=== PATIENT | female | born 1955 | race Caucasian/White ===

== ENCOUNTER 2023-07-31 12:48 | Outpatient (REF) | payer MEDICARE, SELFPAY | END 2023-07-31 12:49 | disposition home or self-care (01) | LOC: LBN 12:48 | PROVIDERS: Visit Provider Physician Assistant | DX: N39.0 Urinary tract infection, site not specified (principal) | CPT/HCPCS: 87086 ==

== ENCOUNTER 2023-08-04 19:48 | Outpatient (CLI) | payer MEDICARE, SELFPAY ==
[2023-08-04 10:26] LABS: Abs Immature Grans 0.03 10^3/uL (0.0-0.06); Absolute Basophil Count 0.08 10^3/uL (0.0-0.2); Absolute Eosinophil Count 0.13 10^3/uL (0.0-0.7); Absolute Lymphocyte Count 2.58 10^3/uL (1.2-3.4); Absolute Monocyte Count 0.73 10^3/uL (0.1-0.8); Absolute Neutrophil Count 4.01 10^3/uL (1.2-6.7); Basophils % 1.1 %; Eosinophils % 1.7 %; HCT 38.5 % (36.0-46.0); HGB 12.8 g/dL (11.2-15.7); Immature Grans % 0.4 %; Lymphocytes % 34.1 %; MCH 31.1 pg (27.0-33.0); MCHC 33.2 % (32.0-36.0); MCV 93 fL (80-95); MPV 9.2 fL (8.0-11.0); Monocytes % 9.7 %; Platelet Count 349 10^3/uL (130-400); RBC 4.12 10^6/uL (3.93-5.22); RDW-SD 41.7 fL; WBC 7.56 10^3/uL (4.4-10.8)
[2023-08-04 10:52] LABS: ALT 69 U/L (14-59); AST 44 U/L (15-37); Albumin 3.8 g/dL (3.4-5.0); Alkaline Phosphatase 102 U/L (46-116); Anion Gap 10.7 mmol/L (3-11); BUN 12 mg/dL (7-18); Bilirubin, Total 0.41 mg/dL (0.2-1.0); CO2 27.3 mmol/L (21.0-32.0); CREATININE 1.1 mg/dL (0.55-1.02); Calcium 9.6 mg/dL (8.5-10.1); Chloride 102 mmol/L (98-107); Estimated GFR 55.42 (mL/min/1.73m2); Glucose 106 mg/dL (74-106); Potassium 4.3 mmol/L (3.5-5.1); Sodium 140 mmol/L (136-145); Total Protein 7.9 g/dL (6.4-8.2)
== END 2023-08-04 19:49 | disposition home or self-care (01) ==
LOC: LBO 19:48
PROVIDERS: Visit Provider Physician Assistant
DX: C64.2 Malignant neoplasm of left kidney, except renal pelvis (principal)
CPT/HCPCS: 36415; 80053; 85025

== ENCOUNTER 2023-12-24 01:06 | Outpatient (CLI) | payer MEDICARE, SELFPAY ==
--- NOTE | 2023-12-24 | DI.CT_ITS ---
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 Lung Computer Aided Detection (CAD) was utilized. CONTRAST MATERIAL: Intravenous: Omnipaque 350 contrast volume:70 mL Oral: Yes COMPARISON: CT CT ABDOMEN WO/W from 08/08/2023 FINDINGS: CHEST: Tracheobronchial tree: Patent where visualized. There is no bronchiectasis. There is mucous plugging in branches of the airway in the right lower lobe. Pulmonary parenchyma: Moderate centrilobular emphysematous changes are present. There is a calcified granuloma in the left upper lobe. No focal consolidating infiltrates. No noncalcified pulmonary no dules are present. Visualized thyroid gland: Unremarkable. Mediastinum and Diana: No dominant adenopathy or fluid collection. The esophagus is unremarkable. Pleura: No effusion or pneumothorax. Heart: The heart is not dilated. Two vessel coronary artery calcification is present. No pericardial effusion. Pulmonary arteries: No pulmonary emboli are identified. Aorta: Thoracic aorta non-dilated. Atherosclerotic calcification is present. There is no evidence of dissection. Lymph nodes: Within normal limits. Soft tissues: Unremarkable. Bones:Within normal limits for the patient's age. ABDOMEN: Liver: Normal density. No suspicious hepatic masses. There are simple cysts seen in the liver. Portal, Superior Mesenteric, and Splenic Veins: Unremarkable. Gallbladder and Biliary Tract: No radiodense calculus or dilation. Pancreas: Normal density, no abnormal calcifications or inflammatory process. Spleen: Normal. Adrenals: No masses seen. Kidneys: Status post left nephrectomy. No new or residual mass is seen in the left renal fossa. No radiodense stones or obstructive uropathy. No masses seen. The right kidney is unremarkable. Abdominal Aorta: Abdominal portion non-dilated. Atherosclerotic calcification is present. Bowel: There is diverticulosis of the colon but no evidence of acute diverticulitis. There is no randi dence of bowel obstruction or bowel wall thickening. No evidence of appendicitis. Peritoneal Cavity: No ascites, collection or mesenteric inflammatory response. No free air. Lymph Nodes: Within normal limits. Bones: Within normal limits for the patient's age. There is a lucency seen in the right iliac bone ( series 22, image 95). This may represent a lytic bone lesion. Soft Tissues: Unremarkable. PELVIS: Bladder: Symmetric distention, no gross wall thickening. Reproductive Organs: Unremarkable as visualized. Lymph Nodes: Within normal limits. Bones: Within normal limits. IMPRESSION: 1. Mucous plugging seen in branches to the right lower lobe. No focal consolidating infiltrates are seen. 2. Moderate centrilobular emphysema. 3. Status post left nephrectomy. 4. Lucency seen in the right iliac bone. The contralateral iliac bone appears unremarkable in this r egion. The possibility of lytic metastasis should be considered. RADIATION DOSE DELIVERED: 200.92mGy.cm Total DLP DATA REPOSITORY: All CT scans at this facility are submitted to the National Radiology Data Registry (NRDR) Dose Index Registry (DIR) with the [employer] ([employer]). RADIATION OPTIMIZATION: All CT scans at this facility use at least one of these dose optimization te chniques: automated exposure control; mA and/or kV adjustment per patient size (includes targeted exa ms where dose is matched to clinical indication); or iterative reconstruction.
[2023-12-24] MEDS: Barium Sulfate 2% W/V-Creamy Vanilla Smoothie 450 ML BTL PO (09:08)
[2023-12-24 09:25] LABS: ALT 13 U/L (14-59); AST 19 U/L (15-37); Albumin 3.5 g/dL (3.4-5.0); Alkaline Phosphatase 88 U/L (46-116); Anion Gap 8.6 mmol/L (3-11); BUN 19 mg/dL (7-18); Bilirubin, Total 0.39 mg/dL (0.2-1.0); CO2 30.4 mmol/L (21.0-32.0); CREATININE 1.2 mg/dL (0.55-1.02); Calcium 9.8 mg/dL (8.5-10.1); Chloride 101 mmol/L (98-107); Estimated GFR 49.61 (mL/min/1.73m2); Glucose 101 mg/dL (74-106); Potassium 3.7 mmol/L (3.5-5.1); Sodium 140 mmol/L (136-145); Total Protein 7.7 g/dL (6.4-8.2)
[2023-12-24] MEDS: Normal Saline - Diluent 50 ML VIAL IJ (10:37)
[2023-12-24] MEDS: Omnipaque 350 MG/ML 500 ML BTL-Imaging package 85 ML IJ (10:38)
== END 2023-12-24 01:26 ==
LOC: DI 01:06
PROVIDERS: PCP Nurse Practitioner Family; Visit Provider Urology
DX: C64.2 Malignant neoplasm of left kidney, except renal pelvis (principal); R91.8 Other nonspecific abnormal finding of lung field
CPT/HCPCS: 74177; 80053; 71260

== ENCOUNTER 2024-10-09 11:47 | Outpatient (CLI) | payer MEDICARE, SELFPAY ==
--- NOTE | 2024-10-09 11:45 | RT.EKG_ITS ---
APPROVED REPORT Exam: Resting ECG Reason for Exam: dyspnea Patient Location: O HR:76 bpm ECG Measurements Heart Rate 76 AXIS WY 176 P 74 QRSd 90 QRS 67 QT 379 T 58 QTc 427 Conclusion Sinus rhythm...normal P axis, V-rate 50- 99 Left atrial enlargement...P, P'>60mS, <-0.15mV V1
== END 2024-10-09 11:48 | disposition home or self-care (01) ==
LOC: DI.CM 11:48
PROVIDERS: PCP Nurse Practitioner Family; Visit Provider Nurse Practitioner Family
DX: R06.00 Dyspnea, unspecified (principal); I51.7 Cardiomegaly
CPT/HCPCS: 93010

== ENCOUNTER → 2025-01-05 01:46 | Outpatient (CLI) | payer MEDICARE, SELFPAY ==
--- NOTE | 2025-01-05 09:34 | DI.CT_ITS ---
Exam(s) CT CHEST/ABD/PEL W EXAM: CT CHEST/ABD/PEL W CLINICAL HISTORY: 6 month f/u RENAL CA,C64.9. TECHNIQUE: Imaging Protocol: Axial computed tomography images with coronal and sagittal reformatted images were created and reviewed. Computer aided detection (CAD) was utilized. CONTRAST MATERIAL: Intravenous: Omnipaque 350 Contrast volume:100 ml Oral: yes COMPARISON: CT CT ABDOMEN WO/W from 08/08/[address] CHEST/ABD/PEL W from 12/24/2023 FINDINGS: CHEST: Pulmonary parenchyma: Moderate emphysematous changes are again noted, greater in the upper lobes. No consolidation. No dominant measurable mass or pulmonary nodules. Tracheobronchial tree: No bronchiectasis. No mucous plugging.No bronchial wall thickening. Pleura: No effusion or pneumothorax. Mediastinum: Within normal limits. Pulmonary arteries: No visible emboli. Cardiovascular: The heart size is normal. Coronary artery calcifications are seen. No pericardial effusion. The ascending aorta measures 3.7 cm in diameter which appears stable. There are mild atherosclerotic changes at the arch and descending thoracic aorta. Bones: Degenerative changes and scoliosis. No lytic or blastic lesions. No compression fractures. Soft tissues: Unremarkable. ABDOMEN and PELVIS: Liver: Normal density. Cysts are again noted. No suspicious mass. Gallbladder and biliary tract: No evidence of stones or wall thickening. No biliary dilatation. Pancreas: Normal density, no abnormal calcifications or inflammatory process. Spleen: Normal. Kidneys: Status post left nephrectomy. No evidence of current mass. The right kidney is normal size, contour and axis. No radiodense stones. No obstructive uropathy. No suspicious masses seen. Adrenal glands: No masses seen. Aorta: Abdominal portion non-dilated. Moderate atherosclerotic changes. No evidence of vessel narrowing. Lymph nodes: Within normal limits. Soft tissues: Unremarkable. Bladder: Unremarkable. Bowel: No obstruction or bowel wall thickening. Diverticulosis of the sigmoid. Peritoneal cavity: No ascites. No focal collection. No mesenteric inflammatory response. No free air. Bones: Scoliosis and degenerative changes of the spine. Stable area of focal cortical thinning in the mid right ilium. This appears unchanged from July 2023 was not PET avid. Reproductive organs: Unremarkable for age. IMPRESSION: No evidence of recurrence renal mass. No evidence of metastatic disease or adenopathy in the chest, abdomen or pelvis. RADIATION DOSE DELIVERED: Total DLP DATA REPOSITORY: All CT scans at this facility are submitted to the National Radiology Data Registry (NRDR) Dose Index Registry (DIR) with the [employer] (ACR). RADIATION OPTIMIZATION: All CT scans at this facility use at least one of these dose optimization techniques: automated exposure control; mA and/or kV adjustment per patient size (includes targeted exams where dose is matched to clinical indication); or iterative reconstruction.
[2025-01-05] MEDS: Barium Sulfate 2% W/V-Berry Smoothie 450 ML BTL PO (13:05)
[2025-01-05] MEDS: Barium Sulfate 2% W/V-Creamy Vanilla Smoothie 450 ML BTL PO (13:05)
[2025-01-05 13:48] LABS: ALT 12 U/L (10-49); AST 24 U/L (<34); Albumin 4.6 g/dL (3.2-5.0); Alkaline Phosphatase 90 U/L (46-116); Anion Gap 9.4 mmol/L (3-11); BUN 19 mg/dL (9-23); Bilirubin, Total 0.70 mg/dL (0.2-1.2); CO2 27.6 mmol/L (20.0-31.0); Calcium 10.0 mg/dL (8.3-10.6); Chloride 105 mmol/L (98-107); Glucose 94 mg/dL (74-106); Potassium 3.7 mmol/L (3.5-5.1); Sodium 142 mmol/L (136-145); Total Protein 8.1 g/dL (5.7-8.2)
[2025-01-05] MEDS: Normal Saline - Diluent 50 ML VIAL IJ (15:18)
[2025-01-05] MEDS: Omnipaque 350 MG/ML 100 ML BTL IJ (15:18)
[2025-01-05] MEDS: Normal Saline Flush 10 ML SYR IVP (15:18)
== END ==
LOC: DI 01:46
PROVIDERS: PCP Nurse Practitioner Family; Visit Provider Nurse Practitioner Family
DX: C64.9 Malignant neoplasm of unspecified kidney, except renal pelvis (principal)
CPT/HCPCS: 74177; 80053; 71260; J3490

== ENCOUNTER 2025-01-31 10:57 | Outpatient (CLI) | payer MEDICARE, SELFPAY ==
[2025-01-31 15:06] LABS: Anion Gap 9.4 mmol/L (3-11); BUN 21 mg/dL (9-23); CO2 27.6 mmol/L (20.0-31.0); Calcium 10.3 mg/dL (8.3-10.6); Chloride 104 mmol/L (98-107); Glucose 93 mg/dL (74-106); Potassium 3.5 mmol/L (3.5-5.1); Sodium 141 mmol/L (136-145)
== END 2025-01-31 10:58 | disposition home or self-care (01) ==
PROVIDERS: PCP Nurse Practitioner Family; Visit Provider Nurse Practitioner Family
DX: I10 Essential (primary) hypertension (principal)
CPT/HCPCS: 36415; 80048